=== PATIENT | male | born 1970 | race Caucasian/White ===

== ENCOUNTER 2025-08-30 13:15 | Emergency (ER) | payer OTHER, SELFPAY ==
--- OUTSIDE RECORDS SUMMARY | 2024-04-24 05:00 | XMS_ITS ---
Author Organization [facility] Address [address] [place], [place] [id number] Care Team Providers Care Excel Analyst Name Role Phone [facility] Primary Care Provider U Mateusz Andres Unavailable [phone] Eric Ontiveros Unavailable Unavailable Michael Christensen Unavailable [phone] REASON FOR VISIT PVI consult PROBLEMS Problem Type ICD Code Onset Dates Problem Status W/U Status Risk SNOMED Code Notes Problem Persistent atrial fibrillation (I48.19) Active confirmed [id number] Encounters Encounter Location Date Provider Diagnosis [facility] [address] [facility] [place] [id number] 04/24/2024 Michael Christensen Persistent atrial fibrillation I48.19 ; NICM (nonischemic cardiomyopathy) I42.8 ; Class 3 congestive heart failure, chronic, systolic I50.22 ; Dyslipidemia E78.5 ; Type 2 diabetes mellitus without complication, without long-term current use of insulin E11.9 and Essential hypertension I10 ASSESSMENTS Encounter Date Diagnosis Assessment Notes Treatment Notes Treatment Clinical Notes Section Notes 04/24/2024 Persistent atrial fibrillation (ICD-10 - I48.19) Pulmonary vein isolation: Since the patient is symptomatic and has failed anti-arrhythmic drug therapy. I discussed in detail the benefits and risks of catheter ablation of atrial fibrillation. I explained that the most common procedure involves transeptal left heart catheterization and pulmonary vein antrum isolation. I informed him that approximately 70% of paroxysmal AF patients that undergo this procedure have a significant reduction in their AF burden or episodes. However some patients may still need to take drugs and anticoagulants or undergo another procedure (20%). Rhythm control can be achieved in 85% of patients that undergo one or more procedures in combination with anti-arrhythmic drug therapy. Complications of the procedure (approximately 5% overall risk) were discussed include: bleeding blood vessel injury cardiac perforation (1%) pulmonary vein stenosis (1%) stroke (1%) atrial-esophageal injury or fistula (<1%) myocardial infarction (<1%) phrenic nerve injury (<1%) pacemaker dependence (<1%) iatrogenic atrial tachycardia requiring another ablation procedure possible emergent major surgery (1/300) (11/999) 04/24/2024 NICM (nonischemic cardiomyopathy) (ICD-10 - I42.8) Pulmonary vein isolation: Since the patient is symptomatic and has failed anti-arrhythmic drug therapy. I discussed in detail the benefits and risks of catheter ablation of atrial fibrillation. I explained that the most common procedure involves transeptal left heart catheterization and pulmonary vein antrum isolation. I informed him that approximately 70% of paroxysmal AF patients that undergo this procedure have a significant reduction in their AF burden or episodes. However some patients may still need to take drugs and anticoagulants or undergo another procedure (20%). Rhythm control can be achieved in 85% of patients that undergo one or more procedures in combination with anti-arrhythmic drug therapy. Complications of the procedure (approximately 5% overall risk) were discussed include: bleeding blood vessel injury cardiac perforation (1%) pulmonary vein stenosis (1%) stroke (1%) atrial-esophageal injury or fistula (<1%) myocardial infarction (<1%) phrenic nerve injury (<1%) pacemaker dependence (<1%) iatrogenic atrial tachycardia requiring another ablation procedure possible emergent major surgery (300) (11/999) 04/24/2024 Class 3 congestive heart failure, chronic, systolic (ICD-10 - I50.22) Pulmonary vein isolation: Since the patient is symptomatic and has failed anti-arrhythmic drug therapy. I discussed in detail the benefits and risks of catheter ablation of atrial fibrillation. I explained that the most common procedure involves transeptal left heart catheterization and pulmonary vein antrum isolation. I informed him that approximately 70% of paroxysmal AF patients that undergo this procedure have a significant reduction in their AF burden or episodes. However some patients may still need to take drugs and anticoagulants or undergo another procedure (20%). Rhythm control can be achieved in 85% of patients that undergo one or more procedures in combination with anti-arrhythmic drug therapy. Complications of the procedure (approximately 5% overall risk) were discussed include: bleeding blood vessel injury cardiac perforation (1%) pulmonary vein stenosis (1%) stroke (1%) atrial-esophageal injury or fistula (<1%) myocardial infarction (<1%) phrenic nerve injury (<1%) pacemaker dependence (<1%) iatrogenic atrial tachycardia requiring another ablation procedure possible emergent major surgery (1/300) (11/999) 04/24/2024 Dyslipidemia (ICD-10 - E78.5) Pulmonary vein isolation: Since the patient is symptomatic and has failed anti-arrhythmic drug therapy. I discussed in detail the benefits and risks of catheter ablation of atrial fibrillation. I explained that the most common procedure involves transeptal left heart catheterization and pulmonary vein antrum isolation. I informed him that approximately 70% of paroxysmal AF patients that undergo this procedure have a significant reduction in their AF burden or episodes. However some patients may still need to take drugs and anticoagulants or undergo another procedure (20%). Rhythm control can be achieved in 85% of patients that undergo one or more procedures in combination with anti-arrhythmic drug therapy. Complications of the procedure (approximately 5% overall risk) were discussed include: bleeding blood vessel injury cardiac perforation (1%) pulmonary vein stenosis (1%) stroke (1%) atrial-esophageal injury or fistula (<1%) myocardial infarction (<1%) phrenic nerve injury (<1%) pacemaker dependence (<1%) iatrogenic atrial tachycardia requiring another ablation procedure possible emergent major surgery (1/300) (11/999) 04/24/2024 Type 2 diabetes mellitus without complication, without long-term current use of insulin (ICD-10 - E11.9) Pulmonary vein isolation: Since the patient is symptomatic and has failed anti-arrhythmic drug therapy. I discussed in detail the benefits and risks of catheter ablation of atrial fibrillation. I explained that the most common procedure involves transeptal left heart catheterization and pulmonary vein antrum isolation. I informed him that approximately 70% of paroxysmal AF patients that undergo this procedure have a significant reduction in their AF burden or episodes. However some patients may still need to take drugs and anticoagulants or undergo another procedure (20%). Rhythm control can be achieved in 85% of patients that undergo one or more procedures in combination with anti-arrhythmic drug therapy. Complications of the procedure (approximately 5% overall risk) were discussed include: bleeding blood vessel injury cardiac perforation (1%) pulmonary vein stenosis (1%) stroke (1%) atrial-esophageal injury or fistula (<1%) myocardial infarction (<1%) phrenic nerve injury (<1%) pacemaker dependence (<1%) iatrogenic atrial tachycardia requiring another ablation procedure possible emergent major surgery () (11/999) 04/24/2024 Essential hypertension (ICD-10 - I10) Pulmonary vein isolation: Since the patient is symptomatic and has failed anti-arrhythmic drug therapy. I discussed in detail the benefits and risks of catheter ablation of atrial fibrillation. I explained that the most common procedure involves transeptal left heart catheterization and pulmonary vein antrum isolation. I informed him that approximately 70% of paroxysmal AF patients that undergo this procedure have a significant reduction in their AF burden or episodes. However some patients may still need to take drugs and anticoagulants or undergo another procedure (20%). Rhythm control can be achieved in 85% of patients that undergo one or more procedures in combination with anti-arrhythmic drug therapy. Complications of the procedure (approximately 5% overall risk) were discussed include: bleeding blood vessel injury cardiac perforation (1%) pulmonary vein stenosis (1%) stroke (1%) atrial-esophageal injury or fistula (<1%) myocardial infarction (<1%) phrenic nerve injury (<1%) pacemaker dependence (<1%) iatrogenic atrial tachycardia requiring another ablation procedure possible emergent major surgery () (11/999) PLAN OF TREATMENT No Information Progress Notes * Examination Category Sub-Category Detail Notes Category Not es General Examination GENERAL APPEARANCE: alert, w ell hydrated, in no distress CARDIOVASCULAR EXAM: no jugular venous d istention, S1, S2 normal, no murmurs, rubs, gallops RESPIRATORY: clear to auscultatio n bilaterally, no wheezes, rales, rhonchi EXTREMITY no clubbing, cyanosi s, or edema
--- OUTSIDE RECORDS SUMMARY | 2024-05-24 10:56 | XMS_ITS ---
Author Organization [facility] Address 7 [facility] [place] [id number] Care Team Providers Care Slide Attendant Name Role Phone [facility] Primary Care Provider Mateusz Han Unavailable [phone] Eric Ontiveros Unavailable Unavailable REASON FOR VISIT NEED VA REF FOR LOGUIDICE Encounters Encounter Location Date Provider Diagnosis [facility] [place] [id number] 05/24/2024 Mateusz Croft PLAN OF TREATMENT No Information
--- OUTSIDE RECORDS SUMMARY | 2024-06-08 08:00 | XMS_ITS ---
Author Organization [facility] Address 7 [facility] [place] [phone] Care Team Providers Care Animal Care Attendant Name Role Phone [facility] Primary Care Provider U Mateusz Andres Unavailable [phone] Eric Ontiveros Unavailable Unavailable Michael Christensen Unavailable [phone] REASON FOR VISIT PVI consult Encounters Encounter Location Date Provider Diagnosis [facility] 7 [facility] [place] [id number] 06/08/2024 Michael Christensen PLAN OF TREATMENT No Information
--- OUTSIDE RECORDS SUMMARY | 2024-06-26 08:00 | XMS_ITS ---
Author Organization [facility] Address 7 [facility] [place] [id number] Care Team Providers Care Fermenter Champagne Name Role Phone [facility] Primary Care Provider U Mateusz Andres Unavailable [phone] Eric Ontiveros Unavailable Unavailable Michael Christensen Unavailable [phone] REASON FOR VISIT PVI consult Encounters Encounter Location Date Provider Diagnosis [facility] 7 [facility] [place] [id number] 06/26/2024 Michael Christensen Persistent atrial fibrillation I48.19 ; NICM (nonischemic cardiomyopathy) I42.8 ; Class 3 congestive heart failure, chronic, systolic I50.22 ; Dyslipidemia E78.5 ; Type 2 diabetes mellitus without complication, without long-term current use of insulin E11.9 and Essential hypertension I10 ASSESSMENTS Encounter Date Diagnosis Assessment Notes Treatment Notes Treatment Clinical Notes Section Notes 06/26/2024 Persistent atrial fibrillation (ICD-10 - I48.19) Pulmonary [...] procedure possible emergent major surgery (1/300) (11/999) 06/26/2024 NICM (nonischemic cardiomyopathy) (ICD-10 - I42.8) Pulmonary [...] procedure possible emergent major surgery (300) (11/999) 06/26/2024 Class 3 congestive heart failure, chronic, systolic [...] procedure possible emergent major surgery (1/300) (11/999) 06/26/2024 Dyslipidemia (ICD-10 - E78.5) Pulmonary vein isolation: [...] procedure possible emergent major surgery (1/300) (11/999) 06/26/2024 Type 2 diabetes mellitus without complication, without [...] procedure possible emergent major surgery (300) (11/999) 06/26/2024 Essential hypertension (ICD-10 - I10) Pulmonary vein [...] procedure possible emergent major surgery (300) (11/999) PLAN OF TREATMENT No Information Progress [...]
--- OUTSIDE RECORDS SUMMARY | 2025-04-11 05:15 | XMS_ITS ---
Author Organization [facility] Address [address] [place] [address] Care Team Providers Care Economic Specialist Name Role Phone Norberto [place] Primary Care Provider Eric Alas [phone] REASON FOR VISIT 1 wk per 04/04/25 dr ryan portillo/lg Medications Medication SIG (Take, Route, Frequency, Duration) Notes Start Date End Date Status Atorvastatin Calcium Not-Taking Carvedilol 25 MG Tablet 1 tablet with food Orally Twice a day; Duration: 30 days INCREASING FROM 12.5MG BID TO 25MG BID 03/06/2025 Active Isosorbide Mononitrate ER 30 MG Tablet Extended Release 24 Hour 1 tablet in the morning Orally TWICE A DAY; Duration: 30 days INCREASING FROM 30MG ONCE A DAY TO 30MG TWICE A DAY 03/20/2025 08/02/2025 Active Eliquis 5 MG Tablet TAKE 1 TABLET BY MOUTH TWICE DAILY Oral; Duration: 30 Days Active Entresto 24-26 MG Tablet TAKE 1 TABLET BY MOUTH TWICE DAILY Oral; Duration: 30 Days Active Furosemide 20 MG Tablet 1 tablet Oral as needed; Duration: 30 days Active Gabapentin 300 MG Capsule 1 capsule Orally Once a day PRN Active Potassium Chloride ER 10 MEQ Capsule Extended Release 1 tablet with food Orally as needed with lasix; Duration: 30 days Active Sertraline HCl Activ e Encounters Encounter Location Date Provider Diagnosis [facility] [address] [place] [address] 04/11/2025 Eric Ontiveros Plan Of Treatment Next Appt Details Provider Name:Eric rodriguez, 09/23/2025 10:45:00 AM, [address], [place], [address], Progress Notes * Cj FELIXDOB:[birth year] (55 yo M)Acc No.[id number]:04/11/2025 Progress Notes Patient: Cj Cole Provider: Giovana Ontiveros MD :1970 A ge:54 Y S ex:Male Date:04/11/2025 Address:[address] [place] [address], [place], [id number] Pcp:HÉCTOR Cornejo Subjective: * Chief Complaints: * 1 wk per 04/04/25 dr davis ov/lg * Surgical History: RACHEL 10.25.23 ECV CONCLUSION: 1. Successful cardioversion 11.16.23 * Hospitalization/Major Diagno stic Procedure: nocturnal polysomnogram 03.24- 03.25.22 ED Nursing Chief Complaint: Pt presents with EMS. EMS reports pt was at work sat back and began to have full body convulsions per friend that was there. On EMS arrival pt was postical but currently is A&Ox4. pt denies hx sz. Pt does have HTN and takes medications in the AM. 11.02.22 ED Physician Chief Complaint: Shortness of breath Nursing Chief Complaint: Reports SOB that started Tuesday. Denies chest pain. 10.22- 10.26.23 A fib w/ RVR, RACHEL - No thrombus is detected in the left atrial appendage. Cardioversion was successful. Rhythm converted from atrial fib to normal sinus rhythm. The procedure was tolerated well without evidence of orophangeal or esophageal trauma. A patent foramen ovale is present. Left ventricular systolic function is severely reduced. There is mild to moderate mitral regurgitation. There is mild tricuspid regurgitation. Trace aortic regurgitation. 10.25.23 * Medications: T akingEliquis 5 MG Tablet TAKE 1 TABLET BY MOUTH TWICE DAILY Oral Entresto 24-26 MG Tablet TAKE 1 TABLET BY MOUTH TWICE DAILY Oral Furosemide 20 MG Tablet 1 tablet Oral as needed Gabapentin 300 MG Capsule 1 capsule Orally Once a day , Notes to Pharmacist: PRNPotassium Chloride ER 10 MEQ Capsule Extended Release 1 tablet with food Orally as needed with lasix Sertraline HCl Carvedilol 25 MG Tablet 1 tablet with food Orally Twice a day , Notes to Pharmacist: INCREASING FROM 12.5MG BID TO 25MG BIDIsosorbide Mononitrate ER 30 MG Tablet Extended Release 24 Hour 1 tablet in the morning Orally TWICE A DAY , stop date 08/02/2025, Notes to Pharmacist: INCREASING FROM 30MG ONCE A DAY TO 30MG TWICE A DAYTaking Eliquis 5 MG Tablet TAKE 1 TABLET BY MOUTH TWICE DAILY Oral Taking Entresto 24-26 MG Tablet TAKE 1 TABLET BY MOUTH TWICE DAILY Oral Taking Furosemide 20 MG Tablet 1 tablet Oral as needed Taking Gabapentin 300 MG Capsule 1 capsule Orally Once a day , Notes to Pharmacist: PRNTaking Potassium Chloride ER 10 MEQ Capsule Extended Release 1 tablet with food Orally as needed with lasix Taking Sertraline HCl Taking Carvedilol 25 MG Tablet 1 tablet with food Orally Twice a day , Notes to Pharmacist: INCREASING FROM 12.5MG BID TO 25MG BIDTaking Isosorbide Mononitrate ER 30 MG Tablet Extended Release 24 Hour 1 tablet in the morning Orally TWICE A DAY , stop date 08/02/2025, Notes to Pharmacist: INCREASING FROM 30MG ONCE A DAY TO 30MG TWICE A DAYNot-TakingAtorvastatin Calcium Not- Taking Atorvastatin Calcium Billing Information: * Procedure Codes: * Electronic signature of Debby Ontiveros MD on 08/30/2025 at 01:25 PM CDT Sign off status: Pending * Provider: Giovana Ontiveros MD Date: 0 04/11/2025 Generated for Odette lozano/Smith/Lalitha on: 01:25 PM CDT
--- OUTSIDE RECORDS SUMMARY | 2025-04-19 05:30 | XMS_ITS ---
Author Organization [facility] Address [address] [place] [address] Care Team Providers Care Corporate Development Manager Name Role Phone Norberto [place] Primary Care Provider Eric Alas [phone] REASON FOR VISIT 1 wk per 04/04/25 dr ryan zheng Encounters Encounter Location Date Provider Diagnosis [facility] [address] [place] [address], [place] [address] 04/19/2025 Eric Ontiveros Plan Of Treatment Next Appt Details Provider Name:Eric rdoriguez, 09/23/2025 10:45:00 AM, [address] [place] [address], [place], [address], Progress Notes * Cj FELIXDOB:[birth year] (55 yo M)Acc No.[id number]:04/19/2025 Progress Notes Patient: Cj Cole Provider: Giovana Ontiveros MD :1970 A ge:54 Y S ex:Male Date:04/19/2025 Address:[address] [place] [address], [id number] Pcp:HÉCTOR Cornejo Subjective: * Chief Complaints: * 1 wk per 04/04/25 dr ryan zheng * Surgical History: RACHEL BH 10.25.23 ECV CONCLUSION: 1. Successful cardioversion 11.16.23 [...] mild tricuspid regurgitation. Trace aortic regurgitation. 10.25.23 Billing Information: * Procedure Codes: * Electronic signature of Debby Ontiveros MD on 08/30/2025 at 01:25 PM CDT Sign off status: Pending * Provider: Giovana Ontiveros MD Date: 0 04/19/2025 Generated for Odette lozano/Smith/Kaykayitting on: 01:25 PM CDT
--- NOTE | 2025-08-30 13:16 | ECG_ITS ---
[facility] 2025-08[facility]30 Pat Name: Cj Fuller Department: Room: Gender: Male Housing Liaison: : 1970 Requested By: Madan Tran Order Number: [id number] MD: Alma Grier M.D. Measurements Intervals Kulm Rate: 139 P: 0 VT: 0 QRS: -79 QRSD: 140 T: 80 QT: 306 QTc: 466 Interpretive Statements ATRIAL FIBRILLATION WITH RAPID VENTRICULAR RESPONSE INTRAVENTRICULAR CONDUCTION DELAY [130+ ms QRS DURATION] INFERIOR MYOCARDIAL INFARCTION , POSSIBLY ACUTE [40+ ms Q WAVE AND/OR ST/T ABNORMALITY IN II/aVF] ANTEROSEPTAL MYOCARDIAL INFARCTION , POSSIBLY ACUTE [40+ ms Q WAVE IN V1-V4] ACUTE LA No previous ECG available for comparison Electronically Signed On 08-31-2025 14:35:01 CDT by Alma Grier M.D. [email or web address]
--- NOTE | 2025-08-30 13:19 | XR_ITS ---
WS: [id number] XR chest 1V portable [id number] REASON FOR EXAM: cp FINDINGS: Moderate tortuosity and ectasia of the aortic arch and thoracic aorta. Cardiomegaly. No significant central pulmonary venous congestion or pulmonary edema. Calcified granulomatous disease in both hemithoraces. No acute pulmonary parenchymal or pleural abnormality. Old pleural pericardial reaction obliterates the left heart border. No findings for pleural effusion. Minimal thoracic scoliosis with moderate degenerative spondylosis. Total reverse left shoulder arthroplasty. XR/XR chest 1V portable [id number] IMPRESSION: Cardiomegaly without acute abnormality.
--- NOTE | 2025-08-30 13:19 | CT_ITS ---
WS: [id number] CT HEAD NONCONTRAST HISTORY: fall TECHNIQUE: Contiguous axial imaging performed through the brain. Bone and soft tissue windows. Sagittal and coronal reformats reviewed. All CT scans at [facility] use at least one of these dose optimization techniques: automated exposure control; mA and/or kV adjustment per patient size (includes targeted exams where dose is matched to clinical indication); or iterative reconstruction. DLP: 1105.93 mGy.cm COMPARISON: None available. No acute intracranial hemorrhage, midline shift or mass effect. No atrophy or prior infarcts or herniation. Ventricles: Normal size with no hydrocephalus. No intra displacement of the cerebellar tonsils. Paranasal sinuses: Normal. Mastoid air cells: Well pneumatized. Calvarium and scalp: No skull fracture is identified. High density foreign body material is noted within the scalp. The largest foreign body deposit measures 8.2 mm over the posterior RIGHT parietal bone. There are additional smaller foci more superficially located posteriorly. CT/CT head wo con* [id number] IMPRESSION: 1. No acute intracranial hemorrhage or edema. 2. No prior infarct. 3. No skull fracture. 4. High density foreign body material in the scalp over the posterior RIGHT pa rietal bone. The largest deposit is 8.2 mm. This may be foreign body debris fro m the recent fall and trauma. No prior studies for comparison.
[2025-08-30 13:23] VITALS: BP 160/126; PULSE 137; RESP 16; TEMP 37; O2SAT 94; BMI 31.5
--- OUTSIDE RECORDS SUMMARY | 2025-08-30 13:24 | XMS_ITS | Patient Health Record ---
Author Organization [facility] Address [address] [place] [address] Care Team Providers Care Surface To [employer] We[employer] Officer Name Role Phone Norberto Madera Primary Care Provider Eric Alas Unavailable [phone] Allergies Allergen (clinical drug ingredient) Drug/Non Drug Allergy documented on EMR Reaction Allergy Type Onset Date Status Penicillin Unknown Drug Allergy Active Results Component Value Reference Range Notes Echo Complete [id number] Reviewed date:03/13/2025 04:10:32 PM Interpretation: Performing Lab: Notes/Report: Cardiopulmonary Services Name: CJ FELIX Study Date: 03/12/2025 : 1970 Patient Location: [facility] Age: 54 yrs Gender: Male Height: 66 in Weight: 241 lb HR: 87 BSA: 2.2 m2 Reason For Study: SOB, HFrEF, Afib, Essential HTN Interpretation Summary Direct visualization of the ejection fraction is approximately 50%. There is moderate concentric left ventricular hypertrophy. There is mild mitral regurgitation. There is mild tricuspid regurgitation. Mild aortic regurgitation. Doppler suggests left to right interatrial shunt. Recommendations Continue present medications with good response to therapy. Will continue to follow regularly. Left Ventricle There is moderate concentric left ventricular hypertrophy. Direct visualization of the ejection fraction is approximately 50%. Right Ventricle The right ventricle is normal size. Atria The left atrial size is normal. Right atrial size is normal. Doppler suggests left to right interatrial shunt. Great Vessels The aortic root is normal size. Pericardium/Pleural There is no pericardial effusion. There is no pleural effusion. Mitral Valve The mitral valve is grossly normal. There is mild mitral regurgitation. Aortic Valve The aortic valve is not well visualized. Mild aortic regurgitation. Tricuspid Valve There is mild tricuspid regurgitation. Right ventricular systolic pressure is normal. Pulmonic Valve The pulmonic valve is not well visualized. Trace pulmonic valvular regurgitation. MMode/2D Measurements & Calculations RVDd: 2.8 cm LVIDd: 4.4 cm FS: 27.6 % IVSd: 1.2 cm LVIDs: 3.2 cm EDV(Teich): 86.8 ml LVPWd: 1.4 cm ESV(Teich): 40.1 ml EF(Teich): 53.8 % Ao root diam: 3.6 cm LVOT diam: 2.2 cm Ao root area: 10.3 cm2 LVOT area: 3.8 cm2 Time Measurements Aortic HR: 75.4 BPM MM HR: 80.1 BPM Pulm. R-R: 0.78 sec Pulm. HR: 77.1 BPM Doppler Measurements & Calculations MV E max tim: 115.3 cm/secMV V2 max: 107.3 cm/sec MV A max tim: 127.6 cm/secMV max P.7 mmHg MV dec slope: 827.1 cm/sec2 MV E/A: 0.90 MV V2 mean: 76.6 cm/sec MV dec time: 0.14 sec MV mean P.7 mmHg MV V2 VTI: 24.5 cm MVA(VTI): 2.9 cm2 Ao V2 max: 122.8 cm/sec AI max tim: 227.2 cm/sec LV V1 max P.8 mmHg Ao max P.0 mmHg AI max P.2 mmHg LV V1 mean P.7 mmHg Ao V2 mean: 88.9 cm/sec AI dec slope: 87.5 cm/sec2LV V1 max: 97.4 cm/sec Ao mean P.6 mmHg AI P1/2t: 760.8 msec LV V1 mean: 56.2 cm/sec Ao V2 VTI: 24.9 cm LV V1 VTI: 18.9 cm ALIS(I,D): 2.9 cm2 ALIS(V,D): 3.0 cm2 CO(LVOT): 5.4 l/min PA V2 max: 111.0 cm/sec TR max tim: 161.5 cm/sec SV(LVOT): 71.1 ml PA max P.9 mmHg TR max P.4 mmHg PA V2 mean: 69.3 cm/sec RVSP(TR): 15.4 mmHg PA mean P.3 mmHg PA V2 VTI: 20.6 cm RAP systole: 5.0 mmHg Ordering Physician: Eric Ontiveros Referring Physician: Eric Ontiveros Performed By: Meche Naranjo Echo Complete [id number] Reviewed date:03/13/2025 04:10:32 PM Interpretation: Performing Lab: Notes/Report: [id number] zzzCT Cardiac Scoring Diagno stic RAD Reviewed date:01/24/2025 09:04:03 AM Interpretation: Performing Lab: Notes/Report: See Below For Report CT Cardiac Scoring Diagnostic RAD Read See Below For Report Schedule Confirmation Reviewed date:01/23/2025 04:40:02 PM Interpretation: Performing Lab: Notes/Report: CT Cardiac Scoring Diagnostic Schedule Confirmation Reviewed date:01/23/2025 04:40:02 PM Interpretation: Performing Lab: Notes/Report: CT Cardiac Scoring Diagnostic Schedule Confirmation Reviewed date:01/22/2025 04:19:43 PM Interpretation: Performing Lab: Notes/Report: CT Cardiac Scoring Diagnostic zzzCT Cardiac Scoring Diagno stic RAD Reviewed date:01/23/2025 04:40:08 PM Interpretation: Performing Lab: Notes/Report: [id number] CT Cardiac Scoring Diagnosti [id number] Reviewed date:01/23/2025 04:40:08 PM Interpretation: Performing Lab: Notes/Report: [id number] Echo Complete [id number] Reviewed date:01/22/2025 10:38:04 AM Interpretation: Performing Lab: Notes/Report: Reason For Referral Reason RFS 09/23/25 APPT FA XED CARDIOLOGY/ EVAL & TREAT/ [facility] Diagnosis 1 Acute on chronic com bined systolic (congestive) and diastolic (congestive) heart failure (I50.43) Referring Provider First Name Daria davis Referring Provider Last Name [facility] Referred Provider Eric Ontiveros Referred Address [address] [place] [phone], Referred Provider Specialty Cardiology Referral Priority Routine Reason APPT 09/23/25 CARD IOLOGY EVAL & TREAT 1 [facility] Diagnosis 1 Unspecified systolic (congestive) heart failure (I50.20) Referring Provider First Name Daria davis Referring Provider Last Name [facility] Referring Provider [facility] Referred Organization [facility] Referred Provider Eric Ontiveros Referred Address [address] [place] [id number], Referred Provider Specialty Cardiology Referral Priority Routine Medications Medication SIG (Take, Route, Frequency, Duration) Notes Start Date End Date Status Atorvastatin Calcium Not-Taking Eliquis 5 MG Tablet TAKE 1 TABLET BY MOUTH TWICE DAILY Oral; Duration: 30 Days Active Carvedilol 25 MG Tablet 1 tablet with food Orally Twice a day; Duration: 30 days INCREASING FROM 12.5MG BID TO 25MG BID 03/06/2025 Active Furosemide 20 MG Tablet 1 tablet Oral as needed; Duration: 30 days Active Entresto 24-26 MG Tablet TAKE 1 TABLET BY MOUTH TWICE DAILY Oral; Duration: 30 Days Active Gabapentin 300 MG Capsule 1 capsule Orally Once a day PRN Active Sertraline HCl 100 MG Tablet 2 tablets Orally Once a day Active Potassium Chloride ER 10 MEQ Capsule Extended Release 1 tablet with food Orally as needed with lasix; Duration: 30 days Active Social History Tobacco Use: Social History Observation Description Date Details (start date - stop date) Former Smoker NA - NA Social History Drugs/Alcohol: Social Info Question Answer Notes Caffeine Intake: 1-2 cups per day Tobacco Use: Social Info Question Answer Notes xTobacco Use/Smoking Are you a former smoker How long has it been since you last smoked? > 10 years Additional Details Category Social Info Options Details Drugs/Alcohol: Do you smoke marijuana? De nies Do you drink alcohol? Denies Section Notes: alcohol - neg caffeine - pos 1-2 cups coffee, 1 soda daily marijuana/drug use - denies alcohol - neg caffeine - pos 1-2 cups coffee, 1 soda daily marijuana/drug use - denies alcohol - neg caffeine - pos 1-2 cups coffee, 1 soda daily marijuana/drug use - denies alcohol - neg caffeine - pos 1-2 cups coffee, 1 soda daily marijuana/drug use - denies Problems Problem Type SNOMED Code ICD Code Onset Dates Problem Status W/U Status Risk Notes Problem Hypertensive heart failure (27139368) Hypertensive heart disease with heart failure (I11.0) Active confirmed Problem Systolic heart failure (567129952) Unspecified systolic (congestive) heart failure (I50.20) Active confirmed Problem Acute on chronic combined systolic and diastolic heart failure (445130395540663) Acute on chronic combined systolic (congestive) and diastolic (congestive) heart failure (I50.43) Active confirmed Problem Essential hypertension (95698316) Essential hypertension (I10) Active confirmed Problem Dyspnea (351979936) SOB (shortne ss of breath) (R06.02) Active confirmed Problem Left bundle branch block (03293163) LBBB (left bundle branch block) (I44.7) Active confirmed Problem Atrial fibrillation (49462953) Atrial fibrillation (I48.91) Active confirmed Problem Obesity (945508706) Obesity (E66.9) Active conf irmed Problem Atrial fibrillation (97464862) Afib (I48.91) Active confirmed Problem Coronary artery disease (62892790) CAD (coronary artery disease) (I25.10) Active confirmed Problem Heart failure with reduced ejection fraction (890703804) Heart failure with reduced ejection fraction (I50.20) Active confirmed Problem Conduction disorder of the heart (70452872) Intraventricular conduction delay (I45.9) Active confirmed Problem First degree atrioventricular block (002600721) 1st degree AV block (I44.0) Active confirmed Problem Asymptomatic bradycardia (1136226983) Asymptomatic bradycardia (R00.1) Active confirmed Vital Signs Heart Rate 72 /min 05/24/2025 Blood pressure diastolic 92 mm Hg 05/24/2025 Oximetry 95 % 05/24/2025 Height-cm 167.64 cm 05/24/2025 Weight-kg 106.23 kg 05/24/2025 Height 66 in 05/24/2025 Blood pressure systolic 160 mm Hg 05/24/2025 Weight 234.2 lbs 05/24/2025 BMI 37.8 kg/m2 05/24/2025 Encounters Encounter Location Date Provider Diagnosis [facility] [address] [place] [address], [place] [address] 03/12/2025 Moisesneюлия Ontiveros [facility] [address] [place] [address], [place] [address] 01/22/2025 Eric Ontiveros Heart failure with reduced ejection fraction I50.20 ; SOB (shortness of breath) R06.02 ; Afib I48.91 ; Essential hypertension I10 ; Obesity E66.9 ; Asymptomatic bradycardia R00.1 ; 1st degree AV block I44.0 and LBBB (left bundle branch block) I44.7 [facility] [address] [place] [address] 03/06/2025 Eric Ontiveros Heart failure with reduced ejection fraction I50.20 ; SOB (shortness of breath) R06.02 ; Afib I48.91 ; CAD (coronary artery disease) I25.10 ; Essential hypertension I10 ; Obesity E66.9 ; 1st degree AV block I44.0 and LBBB (left bundle branch block) I44.[address] [place] [address] 03/20/2025 Eric Quintanashi Heart failure with reduced ejection fraction I50.20 ; SOB (shortness of breath) R06.02 ; Afib I48.91 ; CAD (coronary artery disease) I25.10 ; Essential hypertension I10 ; Obesity E66.9 ; 1st degree AV block I44.0 and LBBB (left bundle branch block) I44.[address] [place] [address] 04/04/2025 Moisesneюлия Quintanashi Heart failure with reduced ejection fraction I50.20 ; SOB (shortness of breath) R06.02 ; Afib I48.91 ; CAD (coronary artery disease) I25.10 ; Essential hypertension I10 ; Obesity E66.9 ; 1st degree AV block I44.0 and LBBB (left bundle branch block) I44.[address] [place] [address] 05/24/2025 Moisesneюлия Quintanashi Heart failure with reduced ejection fraction I50.20 ; SOB (shortness of breath) R06.02 ; Afib I48.91 ; CAD (coronary artery disease) I25.10 ; Essential hypertension I10 ; Statin intolerance Z78.9 ; Obesity E66.9 ; 1st degree AV block I44.0 and LBBB (left bundle branch block) I44.[address] [place] [address] 01/25/[address] [facility] [address] [place] [address] 03/13/[address] [facility] [address] [place] [address] [facility] Encounter Date Diagnosis (ICD Code) Assessment Notes Treatment Notes Treatment Clinical Notes Section Notes 03/06/2025 SOB (shortness of breath) (ICD-10 - R06.02) Or shortness of breath most likely associated with heart failure with reduced ejection fraction most recently 45 to 50% back in June 2024. Talked about repeating echocardiogram when I saw him last time. However he was confused and that he was not able to finish his echocardiogram. Advised the patient to repeat echocardiogram. 03/06/2025 Heart failure with reduced ejection fraction (ICD-10 - I50.20) Repeat echocardiogram 05/24/2025 SOB (shortness of breath) (ICD-10 - R06.02) Shortness of breath has been improving. Echocardiogram from February 2025 showed ejection fraction is 50%. Previously 45 to 50% back in June 2024. Ejection fraction is stable. Stress test from 2023 was negative for ischemia. 05/24/2025 Heart failure with reduced ejection fraction (ICD-10 - I50.20) Continue Entresto 24-26 twice a day. Continue Coreg 25 twice a day Continue isosorbide 30 ER twice a day Talked about option for increasing Entresto to higher dose 4951 twice a day. The patient would like to stay at the current dose. Advised the patient to continue to check his blood pressure at home. If the blood pressure is still elevated patient will call us. As far as today the patient just took his blood pressure medication 30 minutes ago. Blood pressure today is 160 today which has much improved compared to his blood pressure which was 200/100. 04/04/2025 SOB (shortness of breath) (ICD-10 - R06.02) Shortness of breath has been improving. Echocardiogram from February 2025 showed ejection fraction is 50%. Previously 45 to 50% back in June 2024. Ejection fraction is stable. Stress test from 2023 was negative for ischemia. 04/04/2025 Heart failure with reduced ejection fraction (ICD-10 - I50.20) Continue Entresto 24-26 twice a day. Continue Coreg but increase from 12.5-25 twice a day 03/20/2025 SOB (shortness of breath) (ICD-10 - R06.02) Echocardiogram from February 2025 showed ejection fraction is 50%. Previously 45 to 50% back in June 2024. Ejection fraction is stable. Stress test from 2023 was negative for ischemia. 03/20/2025 Heart failure with reduced ejection fraction (ICD-10 - I50.20) Continue Entresto 24-26 twice a day. Continue Coreg but increased from 6.25 to 12.5 mg twice a day. 01/22/2025 SOB (shortness of breath) (ICD-10 - R06.02) Or shortness of breath most likely associated with heart failure with reduced ejection fraction most recently 45 to 50% back in June 2024. Continue Entresto along with Coreg. Repeat echocardiogram. EKG in office today indication is heart failure A-fib findings are Sinus bradycardia heart rate is 80 with first-degree AV block with a left bundle branch block 01/22/2025 Heart failure with reduced ejection fraction (ICD-10 - I50.20) EKG in office today indication is heart failure A-fib findings are Sinus bradycardia heart rate is 80 with first-degree AV block with a left bundle branch block 01/22/2025 Afib (ICD-10 - I48.91) Continue Eliquis 5 twice a day for CVA prevention. EKG from today confirmed he maintain normal rhythm. He is currently taking amiodarone 100 mg daily. Stop amiodarone EKG in office today indication is heart failure A-fib findings are Sinus bradycardia heart rate is 80 with first-degree AV block with a left bundle branch block 03/20/2025 Afib (ICD-10 - I48.91) Continue Eliquis 5 twice a day for CVA prevention. 04/04/2025 Afib (ICD-10 - I48.91) Continue Eliquis 5 twice a day for CVA prevention. 05/24/2025 Afib (ICD-10 - I48.91) Continue Eliquis 5 twice a day for CVA prevention. 03/06/2025 Afib (ICD-10 - I48.91) Continue Eliquis 5 twice a day for CVA prevention. 03/06/2025 CAD (coronary artery disease) (ICD-10 - I25.10) CAD is based off CT calcium score which is 5.4 low risk finding. 05/24/2025 CAD (coronary artery disease) (ICD-10 - I25.10) CAD is based off CT calcium score which is 5.4 low risk finding. 04/04/2025 CAD (coronary artery disease) (ICD-10 - I25.10) CAD is based off CT calcium score which is 5.4 low risk finding. 03/20/2025 CAD (coronary artery disease) (ICD-10 - I25.10) CAD is based off CT calcium score which is 5.4 low risk finding. 01/22/2025 Essential hypertension (ICD-10 - I10) Blood pressure was very high. Last time it was about 130. He had an argument with his consumer loan officer prior to this office visit. Repeat blood pressure. EKG in office today indication is heart failure A-fib findings are Sinus bradycardia heart rate is 80 with first-degree AV block with a left bundle branch block 01/22/2025 Obesity (ICD-10 - E66.9) EKG in office today indication is heart failure A-fib findings are Sinus bradycardia heart rate is 80 with first-degree AV block with a left bundle branch block 03/20/2025 Essential hypertension (ICD-10 - I10) Blood pressure is not still controlled. Increase the Coreg from 6.25-12.5 twice a day. Start isosorbide 30 once a day. 04/04/2025 Essential hypertension (ICD-10 - I10) Increase Coreg from 12.5-25 twice a day. Increase isosorbide from once a day to twice a day. 05/24/2025 Essential hypertension (ICD-10 - I10) 03/06/2025 Essential hypertension (ICD-10 - I10) Blood pressure is very elevated. He was supposed to be on Entresto 2426 twice a day along with Coreg 12.5 twice a day. At some point it is not clear but he stopped taking his Coreg. [facility]. If he is not taking the Coreg then start the Coreg 6.25 twice a day and follow-up in 2 weeks to monitor his blood pressure on the monitor his heart failure. I advised the patient to check his blood pressure at home. 03/06/2025 Obesity (ICD-10 - E66.9) 05/24/2025 Statin intolerance (ICD-10 - Z78.9) 04/04/2025 Obesity (ICD-10 - E66.9) 01/22/2025 Asymptomatic bradycardia (ICD-10 - R00.1) EKG in office today indication is heart failure A-fib findings are Sinus bradycardia heart rate is 80 with first-degree AV block with a left bundle branch block 03/20/2025 Obesity (ICD-10 - E66.9) 03/20/2025 1st degree AV block (ICD-10 - I44.0) 01/22/2025 1st degree AV block (ICD-10 - I44.0) EKG in office today indication is heart failure A-fib findings are Sinus bradycardia heart rate is 80 with first-degree AV block with a left bundle branch block 04/04/2025 1st degree AV block (ICD-10 - I44.0) 03/06/2025 1st degree AV block (ICD-10 - I44.0) 05/24/2025 Obesity (ICD-10 - E66.9) 03/06/2025 LBBB (left bundle branch block) (ICD-10 - I44.7) 03/20/2025 LBBB (left bundle branch block) (ICD-10 - I44.7) 05/24/2025 1st degree AV block (ICD-10 - I44.0) 04/04/2025 LBBB (left bundle branch block) (ICD-10 - I44.7) 01/22/2025 LBBB (left bundle branch block) (ICD-10 - I44.7) EKG in office today indication is heart failure A-fib findings are Sinus bradycardia heart rate is 80 with first-degree AV block with a left bundle branch block 05/24/2025 LBBB (left bundle branch block) (ICD-10 - I44.7) 01/22/2025 Other Saloni Muro am scribing for Eric Ontiveros MD. Eric Muro MD, personally performed the services prescribed in this documentation , as scribed by Saloni Fields and it is both accurate and complete. EKG in office today indication is heart failure A-fib findings are Sinus bradycardia heart rate is 80 with first-degree AV block with a left bundle branch block 03/06/2025 Other Saloni Muro am scribing for Eric Ontiveros MD. Eric Muro MD, personally performed the services prescribed in this documentation , as scribed by Saloni Fields and it is both accurate and complete. 03/20/2025 Other Saloni Muro am scribing for Eric Ontiveros MD. Eric Muro MD, personally performed the services prescribed in this documentation , as scribed by Saloni Fields and it is both accurate and complete. 04/04/2025 Other Saloni Muro am scribing for Eric Ontiveros MD. Eric Muro MD, personally performed the services prescribed in this documentation , as scribed by Saloni Fields and it is both accurate and complete. 05/24/2025 Other Saloni Muro am scribing for Eric Ontiveros MD. Eric Muro MD, personally performed the services prescribed in this documentation , as scribed by Saloni Fields and it is both accurate and complete. Plan Of Treatment Pending Test Test Name Order Date Electrocardiogram (EKG) - 81328 07/04/20 Electrocardiogram (EKG) - 01/22/20 Next Appt Details Provider Name:Eric rodriguez, 09/23/2025 10:45:00 AM, [address], [address], Insurance Providers Payer Name Payer Address Payer Phone Subscriber Number Group Number Insured Name Patient Relationship to Insured Coverage Start Date Coverage End Date [employer] [address] [place] [address] [id number] Cj Felix Self - patient is the insured Medical (General) History Medical History History ICD Code Flu Shot 2022 Acute systolic heart failure-with cardio myopathy HTN Morbid obesity declines covid vaccine Surgical History Surgery Date(Month/Year) RACHEL BH 10.25.23 ECV CONCLUSION: 1. Successful cardiovers ion 11.16.23 Hospitalization History Reason Date(Month/Year) A fib w/ RVR, RACHEL - No throm bus is detected in the left atrial appendage. Cardioversion was successful. Rhythm converted from atrial fib to normal sinus rhythm. The procedure was tolerated well without evidence of orophangeal or esophageal trauma. A patent foramen ovale is present. Left ventricular systolic function is severely reduced. There is mild to moderate mitral regurgitation. There is mild tricuspid regurgitation. Trace aortic regurgitation. 10.25.23 ED Physician Chief Compla int: Shortness of breath Nursing Chief Complaint: Reports SOB that started Tuesday. Denies chest pain. 10.22- 10.26.23 ED Nursing Chief Complain t: Pt presents with EMS. EMS reports pt was at work sat back and began to have full body convulsions per friend that was there. On EMS arrival pt was postical but currently is A&Ox4. pt denies hx sz. Pt does have HTN and takes medications in the AM. 11.02.22 nocturnal polysomnogram 03.24- ECHO 07/04/2024 ECHO 03/12/2025
--- OUTSIDE RECORDS SUMMARY | 2025-08-30 13:25 | XMS_ITS | Patient Health Record ---
Author Organization [facility] Address [address] [place] [address] RAUL Bustos [phone] Care Team Providers Care Acupressure Therapist Name Role Phone [facility] Primary Care Provider U Mateusz Andres Unavailable [phone] Eric Ontiveros Unavailable Unavailable ALLERGIES Allergen (clinical drug ingredient) Drug/Non Drug Allergy documented on EMR Reaction Allergy Type Onset Date Status Penicillin Unknown Drug Allergy Active REASON FOR REFERRAL No Information MEDICATIONS Medication SIG (Take, Route, Frequency, Duration) Notes Start Date End Date Status Amiodarone HCl 200 MG TAKE 1 TABLET BY MOUTH TWICE DAILY Oral [id number],Unavailab le Active Eliquis 5 MG TAKE 1 TABLET BY MOUTH TWICE DAILY Oral Active Carvedilol 12.5 MG TAKE 1 TABLET BY MOUTH TWICE DAILY Oral Active Potassium Chloride ER 10 MEQ TAKE 1 CAPSULE BY MOUTH EVERY DAY NEEDED Oral Active Furosemide 20 MG Oral Act tracy Entresto 24-26 MG TAKE 1 TABLET BY MOUTH TWICE DAILY Oral Active Sertraline HCl Activ e Gabapentin 300 MG 1X DAILY Act tracy Atorvastatin Calcium Active SOCIAL HISTORY Tobacco Use: Social History Observation Description Date Details (start date - stop date) Former Smoker NA - NA Sex Assigned At : Social History Observation Description Sex Assigned At Unknown Tobacco Use/Smoking Question Answer Notes Smoking Status: former smoker How long has it been since you last smoked? > 10 years PROBLEMS Problem Type ICD Code Onset Dates Problem Status W/U Status Risk SNOMED Code Notes Problem Atrial fibrillation, unspecified type (I48.91) Active confirmed 17245593 Problem NICM (nonischemic cardiomyopathy) (I42.8) Active confirmed 63486351 Problem Type 2 diabetes mellitus without complication, without long-term current use of insulin (E11.9) Active confirmed 326172265 Problem Essential hypertension (I10) Active confirmed 57752082 Problem Persistent atrial fibrillation (I48.19) Active confirmed 037998451 Problem Class 3 congestive heart failure, chronic, systolic (I50.22) Active confirmed 028453658 Problem Dyslipidemia (E78.5) Active confirmed [id number] PLAN OF TREATMENT Pending Test Test Name Order Date Echo - 2D Echo (with 3D if indicated) Insurance Providers Payer Name Payer Address Payer Phone Subscriber Number Group Number Insured Name Patient Relationship to Insured Coverage Start Date Coverage End Date [facility] [address] [place] [address] [id number] Cj Samano Self - patient is the insured MEDICAL (GENERAL) HISTORY Medical History History ICD Code FLU SHOT ACUTE SYSTOLIC HEART FAILURE WITH CARDIO MYOPATHY MORBID OBESITY NO COVID VAXX A-FIB Hypertension Diabetes HTN HIGH CHOLESTEROL Surgical History Surgery Date(Month/Year) [facility]- [facility] 10/2023 [facility] 10/25/2023 Hospitalization History Reason Date(Month/Year) VENTRICULAR HEART FAILURE- [facility] 3
--- NOTE | 2025-08-30 13:28 | ED_ITS ---
HPI - Arrhythmia/Palpitations 2 General: Chief Complaint: Arrhythmia/Palpitations Stated Complaint: Fell hit the back of head Time Seen by Provider: 08/30/25 13:19 Source: patient Mode of arrival: ambulatory Limitations: no limitations History of Present Illness: 55-year-old male has a history of A-fib states he is at work today started to feel lightheaded and had a syncopal event. States he fell backwards hit his head on concrete does have a small laceration to the back of his head. Patient denies any neck pain he has a mild headache denies any headache or chest pain before or after the event. Patient is in A-fib with RVR here heart rates been in the 140s. Related Data Allergies Allergy/AdvReac Type Severity Reaction Status Date / Time Penicillins Allergy ALGY-Difficulty Verified 08/30/25 13:28 Breathing Review of Systems 2 Card: Reports: palpitations and irregular heart rhythm Physical Exam 2 Const: COMMON NORMALS: no acute distress, patient oriented x3 and healthy appearing HENMT: COMMON NORMALS: normocephalic HEAD & SCALP: normocephalic OTHER: Abrasion to posterior scalp Neck/C-Spine: COMMON NORMALS: full ROM and supple CERVICAL SPINE: Yes cervical ROM normal, No pain with cervical ROM and No Cervical spine tenderness Chest: COMMONS NORMALS: normal inspection of the chest Resp: COMMON NORMALS: normal respiratory effort, No retractions, No use of accessory muscles and clear to auscultation bilaterally AUSCULTATION: clear to auscultation bilaterally Cardio: COMMON NORMALS: No murmurs present (Cardio) RATE: tachycardic R HYTHM: abnormal rhythm irregularly irregular GI: COMMON NORMALS: Normal to inspection, nondistended, normoactive bowel sounds present, Soft to palpation, non-tender and no masses PALPATION: Yes Soft to palpation Extremity: COMMON NORMALS: normal to inspection and full ROM Neuro: COMMON NORMALS: patient oriented x3, moves all extremities and no focal motor deficits Psych: COMMON NORMALS: mental status grossly normal, Normal thought process present and cooperative THOUGHT PROCESS: Normal thought process present Skin: COMMON NORMALS: no rashes or lesions noted and no wounds GENERAL SKIN EXAM: no rashes or lesions noted Course 2 Vital Signs: Vital signs: Vital Signs Temperature 98.6 F 08/30/25 13:23 Pulse Rate 140 H 08/30/25 13:43 Respiratory Rate 16 08/30/25 13:23 Blood Pressure 131/99 08/30/25 14:34 Pulse Oximetry 98 08/30/25 13:43 Oxygen Delivery Me thod Room Air 08/30/25 13:43 MDM - Arrhythmia/Palpitations Medical Decision Making Patient presents here with syncopal event along with closed head injury and A- fib with RVR. Patient has no signs of acute coronary syndrome has had no chest pain his troponin here is negative he has no signs of subarachnoid hemorrhage or stroke head CT is normal and he has had no focal neurodeficits here. He was in A-fib with RVR with heart rate in the 140s did give him Cardizem and labetalol his heart rate is now in the 80s. I did review his initial EKG did show that are A-fib with RVR heart rate [address] elevation QRS 140 QTc 387. Patient did receive a head CT and chest today that I reviewed that showed no abnormalities. Patient's lab work here including electrolytes and initial troponins are negative he has had no chest pain here. I did have extensive discussion with him and offered him admission as he had a syncopal event and A-fib RVR he states that he feels much improved and does not want to be admitted we did have shared decision making. I did go over his EKG and his labs and his imaging he understands and agrees to plan he is to follow-up with his PCP and return if worsening. Medical Records I reviewed the patient's medical records. Lab Data I reviewed the patient's lab results. 08/30/25 13:33 08/30/25 14:05 Radiology Impressions Chest X-Ray 08/30/25 13:19 IMPRESSION: Cardiomegaly without acute abnormality. Head CT 08/30/25 13:19 IMPRESSION: 1. No acute intracranial hemorrhage or edema. 2. No prior infarct. 3. No skull fracture. 4. High density foreign body material in the scalp over the posterior RIGHT parietal bone. The largest deposit is 8.2 mm. This may be foreign body debris from the recent fall and trauma. No prior studies for comparison. Laboratory Results WBC 9.40 10^3/uL (3.29-11.43) 08/30/25 13:33 RBC 5.69 10^6/uL (3.85-5.65) H 08/30/25 13:33 Hgb 16.30 g/dL (11.27-16.99) 08/30/25 13:33 Hct 48.5 % (37-53) 08/30/25 13:33 MCV 85.2 fl (82-101) 08/30/25 13:33 MCH 28.6 pg (27-33) 08/30/25 13:33 MCHC 33.6 g/dL (30-55) 08/30/25 13:33 RDW 13.9 % (12.1-15.1) 08/30/25 13:33 Plt Count 215 10^3/cmm (157-399) 08/30/25 13:33 MPV 10.5 fL (7.4-10.4) H 08/30/25 13:33 Neut % (Auto) 59.6 % 08/30/25 13:33 Lymph % (Auto) 29.8 % 08/30/25 13:33 Charles % (Auto) 8.2 % 08/30/25 13:33 Eos % (Auto) 1.5 % 08/30/25 13:33 Baso % (Auto) 0.5 % 08/30/25 13:33 Neut # (Auto) 5.60 10^3/uL (1.8-7.7) 08/30/25 13:33 Lymph # (Auto) 2.8 10^3/uL (0.8-4.8) 08/30/25 13:33 Charles # (Auto) 0.8 10^3/uL (0.2-0.9) 08/30/25 13:33 Eos # (Auto) 0.1 10^3/uL (0.0-0.8) 08/30/25 13:33 Baso # (Auto) 0.1 10^3/uL (0.0-0.1) 08/30/25 13:33 Nucleated RBC % (auto) 0 % 08/30/25 13:33 Nucleated RBCs # 0.0 /100WBC 08/30/25 13:33 PT 14.50 SECONDS (12.1-14.9) 08/30/25 13:33 INR 1.06 (0.8-1.2) 08/30/25 13:33 Sodium 140 mmol/L (136-145) 08/30/25 14:05 Potassium 4.2 mmol/L (3.5-5.1) 08/30/25 14:05 Chloride 103 mmol/L (98-107) 08/30/25 14:05 Carbon Dioxide 24 mmol/L (22-29) 08/30/25 14:05 Anion Gap 17.2 (5-19) 08/30/25 14:05 BUN 17 mg/dL (6-20) 08/30/25 14:05 Creatinine 1.1 mg/dL (0.7-1.2) 08/30/25 14:05 GFR Calculation 70.0 mL/min (90-130) L 08/30/25 14:05 Glucose 122 mg/dL (65-115) H 08/30/25 14:05 Calculated Osmolality 293 mOsm/kg (285-295) 08/30/25 14:05 Calcium 9.0 mg/dL (8.5-10.5) 08/30/25 14:05 Total Bilirubin 0.5 mg/dL (0.15-1.2) 08/30/25 14:05 AST 18 U/L (0-40) 08/30/25 14:05 ALT 15 U/L (0-41) 08/30/25 14:05 Alkaline Phosphatase 93 U/L (40-130) 08/30/25 14:05 Troponin T Baseline 8 ng/L (0-15) 08/30/25 13:33 Total Protein 6.9 g/dL (6.6-8.7) 08/30/25 14:05 Albumin 4.2 g/dL (3.5-5.2) 08/30/25 14:05 Globulin 2.7 g/dL (1.3-4.6) 08/30/25 14:05 All radiology interpretation(s) finalized by discharge EKG Data EKG 1: I personally reviewed and interpreted this EKG as follows: EKG interpretation date: 08/30/25 EKG interpretation time: 13:16 Interpretation: afib with rvr hr [address] elevation qrs 140 qtc 387 Other EKG comments: Chest X-Ray 08/30/25 13:19 IMPRESSION: Cardiomegaly without acute abnormality. Head CT 08/30/25 13:19 IMPRESSION: 1. No acute intracranial hemorrhage or edema. 2. No prior infarct. 3. No skull fracture. 4. High density foreign body material in the scalp over the posterior RIGHT parietal bone. The largest deposit is 8.2 mm. This may be foreign body debris from the recent fall and trauma. No prior studies for comparison. Critical Care Time 2 Critical Care Time: Critical Care Time: Yes Total Critical Care Time: 40 Attestation: The high probability of a clinically significant, sudden or life threatening deterioration of the patient's cv system(s) required my full and direct attention, intervention and personal management. The critical care time is as shown. This time is in addition to time spent performing any reported procedures but includes the following: [x] Data and vital sign review and interpretation [x] Patient assessment, examination and intervention [x] Documentation [x] Medication orders and management Discharge Plan Discharge Patient Disposition: Home Clinical Impression: Closed head injury, Syncope, Atrial fibrillation with RVR Condition: Stable Discharge Orders: Discharge ED (Routine); Ordered 08/30/25 Ordered By: Madan Tran Discharge Diet: Advance as tolerated Discharge Activity: Resume usual activity Patient Instructions: A-fib (Atrial Fibrillation) (ED), Syncope (ED), Head Injury (ED) Print Language: Slovenian Coding Level of Care Code ED Counseling Psychologist for Kavin Mcleod
[2025-08-30] MEDS: dilTIAZem 5 mg/mL SDV 5 mL 20 MG IVP (13:39)
[2025-08-30 13:43] VITALS: PULSE 140; O2SAT 98
[2025-08-30 13:45] LABS: Hematocrit 48.5 % (37-53); Hemoglobin 16.30 g/dL (11.27-16.99); Mean Corpuscular HGB Conc 33.6 g/dL (30-55); Mean Corpuscular Hemoglobin 28.6 pg (27-33); Mean Corpuscular Volume 85.2 fl (82-101); Nucleated Red Blood Cells % 0 %; Platelet Count 215 10^3/cmm (157-399); Red Blood Count 5.69 10^6/uL (3.85-5.65); White Blood Count 9.40 10^3/uL (3.29-11.43)
[2025-08-30 13:58] LABS: INR 1.06 (0.8-1.2); Prothrombin Time 14.50 SECONDS (12.1-14.9)
[2025-08-30 14:04] LABS: Troponin(5th) Baseline 8 ng/L (0-15)
[2025-08-30 14:09] VITALS: BP 142/111
[2025-08-30] MEDS: labetalol 5 mg/mL SDV 20mL 10 MG IVP (14:25)
[2025-08-30 14:34] VITALS: BP 131/99
[2025-08-30 14:34] LABS: Alanine Aminotransferase 15 U/L (0-41); Albumin Level 4.2 g/dL (3.5-5.2); Alkaline Phosphatase 93 U/L (40-130); Anion Gap 17.2 (5-19); Aspartate Amino Transferase 18 U/L (0-40); Blood Urea Nitrogen 17 mg/dL (6-20); Calcium 9.0 mg/dL (8.5-10.5); Carbon Dioxide 24 mmol/L (22-29); Chloride 103 mmol/L (98-107); Creatinine Clr Calc Pharmacy 91.9608; Globulin 2.7 g/dL (1.3-4.6); Glucose 122 mg/dL (65-115); Osmolality Calculated 293 mOsm/kg (285-295); Potassium 4.2 mmol/L (3.5-5.1); Sodium 140 mmol/L (136-145); Total Protein 6.9 g/dL (6.6-8.7)
[2025-08-30 14:48] VITALS: BP 130/99; PULSE 92; O2SAT 98
== END 2025-08-30 14:49 | disposition home or self-care (01) ==
PROVIDERS: Emergency Provider Emergency Medicine
DX: S01.01XA Laceration without foreign body of scalp, initial encounter (principal); S09.8XXA Other specified injuries of head, initial encounter; W19.XXXA Unspecified fall, initial encounter; R55 Syncope and collapse; I48.20 Chronic atrial fibrillation, unspecified
CPT/HCPCS: 36415; 70450; 71045; 80053; 84484; 85025; 85610; 93005; 96374; 96375; 99285; J3490